=== PATIENT | male | born 1955 ===

== ENCOUNTER 2017-09-27 11:22 | Emergency (ER) | payer SELFPAY ==
[2017-09-27 11:29] VITALS: TEMP 98.2; BMI 47.0
--- NOTE | 2017-09-27 11:43 | PDOC ---
History of Present Illness - General History Source: Patient Exam Limitations: No Limitations - History of Present Illness Initial Comments: 09/27/17 12:58 The patient is a 62 year old male, with a significant past medical history of hypertension, hyperlipidemia, and diabetes, who presents to the emergency department with shortness of breath and lower extremity edema for approximately 2 days. The patient reports increased of shortness of breath 2 days ago and bilateral leg swelling. He reports associated orthopnea, and has slight dyspnea on exertion but denies leg cramping, chest pain, hemoptysis, diaphoresis, or palpitations. He denies any abdominal pain, nausea, vomiting, diarrhea, or constipation. He denies any fever, chills, cough, headache, or dizziness. He denies any dysuria, hematuria, frequency, or urgency. Patient reports he recently returned from [place] 2 days ago. Family states that due to recent travel, patient has not taken his Lasix since. Patient reports he has seen a Mlt in the past, but does not recall for what. No PMD in the [place]. Allergies: NKDA Past Surgical History: None reported Social History: Current some day smoker. No ETOH or recreational drug use. History taken with assistance of family bedside in ge[place]ian <Crow Curtis - Last Filed: 09/27/17 15:00> - General History Source: Patient Exam Limitations: No Limitations <Shahbaz Benjamin - Last Filed: 09/29/17 07:52> - General Chief Complaint: Edema Stated Complaint: SWOLLEN LEGS Time Seen by Provider: 09/27/17 11:37 Past History <Crow Curtis - Last Filed: 09/27/17 15:00> - Past Medical History COPD: No Diabetes: Yes HTN: Yes - Suicide/Smoking/Psychosocial Hx Smoking History: Current some day smoker Number of Cigarettes Smoked Daily: 1 Information on smoking cessation initiated: No <Shahbaz Benjamin - Last Filed: 09/29/17 07:52> - Past Medical History Allergies/Adverse Reactions: Allergies Allergy/AdvReac Type Severity Reaction Status Date / Time No Known Allergies Allergy Verified 09/27/17 11:29 Home Medications: Ambulatory Orders Amlodipine Besylate [Norvasc -] 5 mg PO BID 09/27/17 Bisoprolol Fumarate [Zebeta (Nf) -] 5 mg PO BID 09/27/17 Cinnarizine 75 mg PO DAILY 09/27/17 Ciprofloxacin HCl [Cipro] 500 mg PO BID 09/27/17 Digoxin 250 mcg PO DAILY 09/27/17 Fluvastatin Sodium [Fluvastatin ER] 80 mg PO DAILY 09/27/17 Furosemide [Lasix] 40 mg PO BID 09/27/17 Gabapentin [Neurontin -] 300 mg PO DAILY 09/27/17 Insulin Aspart Prot/Insuln Asp [Novolog Mix 70-30 Flexpen Syrn] 25 unit SQ 1730 09/27/17 Insulin Aspart Prot/Insuln Asp [Novolog Mix 70-30 Flexpen Syrn] 25 unit SQ AM Insulin Aspart Prot/Insuln Asp [Novolog Mix 70-30 Flexpen Syrn] 30 unit SQ 1230 09/27/17 Lansoprazole [Prevacid] 30 mg PO DAILY 09/27/17 Metformin HCl 850 mg PO TID 09/27/17 Vitamin B Complex 1 each PO DAILY 09/27/17 Review of Systems - Review of Systems Able to Perform ROS?: Yes Comments:: 09/27/17 12:58 Constitutional: Pt denies Fever, Chills, weakness, HEENT: denies vision changes, sore throat Respiratory: +Dyspnea, orthopnea. Denies cough, sob, hemoptysis, dyspnea on exertion Cardiac: +Bilateral leg swelling. denies chest pain, palpitations, lightheadedness Abd/GI: denies abd pain, nausea, vomiting, blood per rectum, melena, diarrhea : denies dysuria, frequency, discharge Musculoskeletal: denies back pain, joint pain Skin: denies bruising, erythema, rash Neurological: denies headache, numbness, focal weakness, tingling, ataxia, weakness Hematologic: denies anemia, easy bruising, easy bleeding <Curtis,Giomilsy - Last Filed: 09/27/17 15:00> *Physical Exam - Vital Signs Last Vital Signs Temp Pulse Resp BP Pulse Ox 98.2 F 75 18 129/53 97 09/27/17 11:24 09/27/17 11:24 09/27/17 11:24 09/27/17 11:24 09/27/17 11:57 - Physical Exam Comments: 09/27/17 12:58 GENERAL: The patient is awake, alert, and fully oriented, Nontoxic - in no acute distress, morbidly obese HEAD: Normocephalic, atraumatic. EYES: extraocular movements intact, sclera anicteric, conjunctiva clear. ENT: Normal voice, Moist mucous membranes. NECK: Normal range of motion, supple LUNGS: scant rales at the L base, but otherwise clear throughout HEART: Regular rate and rhythm, normal S1 and S2 without murmur, rub or gallop. ABDOMEN: Soft, nontender, normoactive bowel sounds. No guarding, no rebound. . No CVA tenderness EXTREMITIES: Normal range of motion, +3 pitting edema in b/l LE. NEUROLOGICAL: No facial assymetry, Normal speech, moving all 4 extremities spontaneously and symmetrically PSYCH: Normal mood, normal affect. SKIN: Warm, Dry, normal turgor, <Crow Curtis - Last Filed: 09/27/17 15:00> - Vital Signs Last Vital Signs Temp Pulse Resp BP Pulse Ox 98.2 F 75 18 129/53 96 09/27/17 11:24 09/27/17 11:24 09/27/17 11:24 09/27/17 11:24 09/27/17 11:24 <Shahbaz Benjamin - Last Filed: 09/29/17 07:52> Heart Score/ECG Review - ECG Impressions Comment:: 09/27/17 12:10 Twelve-lead EKG was performed and reviewed by me. There is normal sinus rhythm with a normal rate. Rate 75 The intervals are normal. There are no ST or T wave abnormalities. <Shahbaz Benjamin - Last Filed: 09/29/17 07:52> ED Treatment Course - LABORATORY CBC & Chemistry Diagram: 09/27/17 12:10 09/27/17 12:10 - ADDITIONAL ORDERS Additional order review: 09/27/17 12:10 RBC 5.28 MCV 79.2 L MCHC 32.2 RDW 18.4 H MPV 8.2 Neutrophils % 63.0 Lymphocytes % 24.2 Monocytes % 7.4 Eosinophils % 4.4 Basophils % 1.0 <Crow Curtis - Last Filed: 09/27/17 15:00> - LABORATORY CBC & Chemistry Diagram: 09/27/17 12:10 09/27/17 12:10 <Shahbaz Benjamin - Last Filed: 09/29/17 07:52> Medical Decision Making - Medical Decision Making 09/27/17 12:05 62y M hx of htn, hl, ?chf? on digxin visting from [place], here 2 days presents with increased b/l edema and orthopnea the past few days, does endorse some minimally increasd quiles, but denies any f/c, cp, n/v, diaphoresis. suspect possible chf vs dependent edema will ck labs, bnp, cxr, ekg will reassess A portion of this note was documented by scribe services under my direction. I have reviewed the details of the note, within reason, and agree with the documentation with the following case summary and management plan written by me 09/27/17 13:59 labs unremarkble cxr clear bnp wnl will give pt some lasix, sob ?due to body habitus? will reassess 09/27/17 14:56 pt feeling improved after lasix will dc dustin pt with pmd fu I discussed the physical exam findings, ancillary test results and final diagnoses with the patient. I answered all of the patient's questions. The patient was satisfied with the care received and felt comfortable with the discharge plan and treatment plan. The patient will call their primary care physician within 24 hours to arrange follow-up and will return to the Emergency Department with any new, persistent or worsening symptoms. <Shahbaz Benjamin - Last Filed: 09/29/17 07:52> *DC/Admit/Observation/Transfer - Attestations Scribe Attestion: 09/27/17 12:58 Documentation prepared by Crow Curtis, acting as electromedical service engineer for Shahbaz Benjamin MD. <Crow Curtis - Last Filed: 09/27/17 15:00> - Discharge Dispostion Admit: No <Shahbaz Benjamin - Last Filed: 09/29/17 07:52> Diagnosis at time of Disposition: Dependent edema - Discharge Dispostion Disposition: HOME Condition at time of disposition: Improved - Referrals Referrals: [facility] [place] [Provider Group] - Patient Instructions Printed Discharge Instructions: DI for Dependent Edema Additional Instructions: Return to the emergency department immediately with ANY new, persistent or worsening symptoms. Continued taking your medications as prescribed You MUST call and follow up with your doctor tomorrow for further evaluation of your symptoms. Results were discussed with you. Please make sure your doctor reviews the results of your emergency evaluation. Print Language: ITALIAN
[2017-09-27 12:29] LABS: EOS % 4.4 % (0-4.5); HEMATOCRIT 41.8 % (35.4-49); HEMOGLOBIN 13.4 GM/dL (11.7-16.9); LYMPH % 24.2 % (8-40); MCH 25.5 pg (25.7-33.7); MCHC 32.2 g/dl (32.0-35.9); MEAN CELL VOLUME 79.2 fl (80-96); MEAN PLT VOLUME 8.2 fl (7.5-11.1); MONO % 7.4 % (3.8-10.2); PLATELET COUNT 269 K/MM3 (134-434); RBC 5.28 M/mm3 (4.00-5.60); RDW 18.4 % (11.9-15.9); WHITE BLOOD COUNT 11.9 K/mm3 (4.0-10.0)
[2017-09-27 13:00] LABS: ALBUMIN 3.5 g/dl (3.4-5.0); ALK PHOS 62 U/L (45-117); ANION GAP 7 (8-16); BILIRUBIN,TOTAL 0.2 mg/dL (0.2-1.0); BLOOD UREA NITROGEN 27 mg/dL (7-18); CALCIUM 8.7 mg/dL (8.5-10.1); CHLORIDE 106 mmol/L (98-107); CO2 24 mmol/L (21-32); CREATININE 1.2 mg/dL (0.7-1.3); GLUCOSE,RANDOM 161 mg/dL (74-106); POTASSIUM 4.3 mmol/L (3.5-5.1); SGOT/AST 15 U/L (15-37); SGPT/ALT 21 U/L (12-78); SODIUM 137 mmol/L (136-145); TOT PROT 7.4 g/dl (6.4-8.2)
[2017-09-27 13:02] LABS: N-TERMINAL BNP 85.87 pg/ml (5-125)
[2017-09-27 13:28] LABS: URINE APPEARANCE CLEAR; URINE BILIRUBIN NEGATIVE (<2.0 mg/dL); URINE BLOOD NEGATIVE (NEGATIVE); URINE COLOR STRAW; URINE GLUCOSE (UA) NEGATIVE (NEGATIVE); URINE KETONE NEGATIVE (NEGATIVE); URINE LEUK ESTERASE NEGATIVE (NEGATIVE); URINE NITRITE NEGATIVE (NEGATIVE); URINE UROBILINOGEN NEGATIVE mg/dL (0.2-1.0)
[2017-09-27 13:32] LABS: URINE PROTEIN 1+ (NEGATIVE)
[2017-09-27] MEDS ORDERED: FUROSEMIDE 40 MG/4 ML INJECTABLE VIAL IVPUSH ONE (13:58)
[2017-09-27] MEDS ORDERED: FUROSEMIDE 40 MG/4 ML INJECTABLE VIAL ONE (14:00)
[2017-09-27 14:15] VITALS: BP 116/50; PULSE 73
[2017-09-27 14:21] LABS: EPI CELLS RARE /HPF (FEW); URINE MUCUS RARE
--- NOTE | 2017-09-29 12:49 | EKG ---
Test Reason : Blood Pressure : / mmHG Vent. Rate : 075 BPM Atrial Rate : 075 BPM P-R Int : 184 ms QRS Dur : 092 ms QT Int : 376 ms P-R-T Axes : 035 -17 082 degrees QTc Int : 419 ms NORMAL SINUS RHYTHM NORMAL ECG NO PREVIOUS ECGS AVAILABLE Confirmed by JAVIER MENDENHALL MD ([id number]) on 09/29/2017 12:48:38 PM Referred By: Confirmed By:JAVIER MENDENHALL MD
== END 2017-09-27 15:13 | disposition home or self-care (01) ==
LOC: JER 11:22
PROC: 3E033GC Introduction of Other Therapeutic Substance into Peripheral Vein, Percutaneous Approach (ICD-10-PCS; principal; 2017-09-27)
DX: R60.0 Localized edema (principal); I10 Essential (primary) hypertension; E11.9 Type 2 diabetes mellitus without complications; Z79.4 Long term (current) use of insulin; Z79.84 Long term (current) use of oral hypoglycemic drugs; E78.5 Hyperlipidemia, unspecified; F17.210 Nicotine dependence, cigarettes, uncomplicated
CPT/HCPCS: 36415; 71046-TC-FY; 80053; 80162; 81003; 81015; 82550; 83880; 84484; 85025; 87086; 93005; 93010; 99284-25